=== PATIENT | female | born 1985 | race Caucasian/White ===

== ENCOUNTER 2017-12-10 00:41 | Inpatient (IN) | payer BC ==
[2017-12-10] MEDS ORDERED: Lactated Ringers 1,000 ML ONE (03:08)
--- NOTE | 2017-12-10 03:34 | PCM.PREANE ---
Preanesthetic Assessment - Procedure Proposed Procedure: FATEMEH - Anesthesia/Transfusion/Family Hx Anesthesia History: Prior Anesthesia Without Reaction Family History of Anesthesia Reaction: No Transfusion History: No Prior Transfusion(s) - Review of Systems General: No Symptoms Pulmonary: No Symptoms Cardiovascular: No Symptoms Gastrointestinal: No Symptoms Neurological: No Symptoms Other: Reports: None - Physical Assessment NPO Status Date: 12/10/17 NPO Status Time: 01:00 Respiratory Rate: 18 Vital Signs: Last Vital Signs Temp 36.8 C 12/10/17 01:11 Pulse 81 12/10/17 01:11 Resp 18 12/10/17 01:11 BP 145/91 H 12/10/17 01:11 Pulse Ox Height: 1.57 m Weight: 85.82 kg ASA Class: 2 Mental Status: Alert & Oriented x3 Airway Class: Mallampati = 2 Dentition: Reports: Normal Dentition Thyro-Mental Finger Breadths: 3 Mouth Opening Finger Breadths: 3 ROM/Head Extension: Full Lungs: Clear to Auscultation, Normal Respiratory Effort Cardiovascular: Regular Rate, Regular Rhythm - Lab Values: Laboratory Last Values WBC 12.05 K/mm3 (3.98-10.04) H 12/10/17 02:45 RBC 4.11 M/mm3 (3.98-5.22) 12/10/17 02:45 Hgb 12.1 gm/L (11.2-15.7) 12/10/17 02:45 Hct 36.4 % (34.1-44.9) 12/10/17 02:45 MCV 88.6 fl (79.4-94.8) 12/10/17 02:45 MCH 29.4 pg (25.6-32.2) 12/10/17 02:45 MCHC 33.2 g/dl (32.2-35.5) 12/10/17 02:45 RDW Std Deviation 48.6 fL (36.4-46.3) H 12/10/17 02:45 Plt Count 191 K/mm3 (182-369) 12/10/17 02:45 MPV 11.5 fl (9.4-12.3) 12/10/17 02:45 Neut % (Auto) 71.4 % (34.0-71.1) H 12/10/17 02:45 Lymph % (Auto) 20.7 % (19.3-51.7) 12/10/17 02:45 [place] % (Auto) 6.6 % (4.7-12.5) 12/10/17 02:45 Eos % (Auto) 0.7 (0.7-5.8) 12/10/17 02:45 Baso % (Auto) 0.2 % (0.1-1.2) 12/10/17 02:45 Neut # (Auto) 8.60 K/mm3 (1.56-6.13) H 12/10/17 02:45 Lymph # (Auto) 2.50 K/mm3 (1.18-3.74) 12/10/17 02:45 [place] # (Auto) 0.80 K/mm3 (0.24-0.36) H 12/10/17 02:45 Eos # (Auto) 0.08 K/mm3 (0.04-0.36) 12/10/17 02:45 Baso # (Auto) 0.02 K/mm3 (0.01-0.08) 12/10/17 02:45 Urine Color Yellow (Yellow) 12/10/17 02:25 Urine Appearance Clear (Clear) 12/10/17 02:25 Urine pH 7.0 (5.0-8.0) 12/10/17 02:25 Ur Specific [place] 1.015 (1.005-1.030) 12/10/17 02:25 Urine Protein Negative (Negative) 12/10/17 02:25 Urine Glucose (UA) Negative (Negative) 12/10/17 02:25 Urine Ketones Negative (Negative) 12/10/17 02:25 Urine Occult Blood Negative (Negative) 12/10/17 02:25 Urine Nitrite Negative (Negative) 12/10/17 02:25 Urine Bilirubin Negative (Negative) 12/10/17 02:25 Urine Urobilinogen 0.2 (0.2-1.0) 12/10/17 02:25 Ur Leukocyte Esterase Negative (Negative) 12/10/17 02:25 Urine RBC 0-5 /hpf (0-5) 12/10/17 02:25 Urine WBC 0-5 /hpf (0-5) 12/10/17 02:25 Ur Epithelial Cells 0-5 /hpf (0-5) 12/10/17 02:25 Urine Bacteria Few /hpf (FEW) 12/10/17 02:25 Urine Mucus Not seen /hpf (FEW) 12/10/17 02:25 - Allergies Allergies/Adverse Reactions: Allergies Allergy/AdvReac Type Severity Reaction Status Date / Time paper tape Allergy Rash Uncoded 12/10/17 01:13 - Blood Blood Available: No Product(s) Available: None - Anesthesia Plan Pre-Op Medication Ordered: None - Acknowledgements Anesthesia Type Planned: Epidural Pt an Appropriate Candidate for the Planned Anesthesia: Yes Alternatives and Risks of Anesthesia Discussed w Pt/Guardian: Yes Pt/Guardian Understands and Agrees with Anesthesia Plan: Yes PreAnesthesia Questionnaire - CURRENT (IN HOUSE) MEDS Current Meds: Current Medications Discontinued Medications Lactated Ringer's (Ringers, Lactated) Confirm Administered Dose 1,000 mls @ as directed .ROUTE .STK-MED ONE Stop: 12/10/17 03:09
[2017-12-10] MEDS ORDERED: Ondansetron 4 MG/2 ML SDV IVPUSH PRN (03:38)
[2017-12-10] MEDS ORDERED: ePHEDrine 50 MG/ML SDV IVPUSH PRN (03:38)
[2017-12-10] MEDS ORDERED: diphenhydrAMINE 50 MG/ML SDV IVPUSH PRN (03:38)
[2017-12-10] MEDS ORDERED: fentaNYL 100 MCG/2 ML SDV EPIDUR PRN (03:38)
[2017-12-10] MEDS ORDERED: Sodium Chloride 0.9% 10 ML Syringe FLUSH PRN (03:47)
[2017-12-10] MEDS: Lactated Ringers 1,000 ML IV SCH ×6 (03:50→18:58)
[2017-12-10] MEDS ORDERED: Oxytocin/Lactated Ringers 10 UNIT/1,000 ML BAG IV SCH (04:00)
[2017-12-10] MEDS: Bupivacaine/fentaNYL/NS 100 ML Bag EPIDUR SCH ×2 (04:45→12:04)
[2017-12-10] MEDS ORDERED: Bupivacaine 0.25% 10 ML SDV ONE (06:00)
--- NOTE | 2017-12-10 10:12 | HP ---
DATE OF ADMISSION: 12/10/2017 ADMISSION DIAGNOSIS: 40 and /7th-week intrauterine , active labor. HISTORY OF PRESENT ILLNESS: The patient is a 32-year-old, 1, para 0, white female, who is admitted in active labor with some cervical change. She is jennifer every 3 to 5 minutes, moderately uncomfortable and has changed her cervix. 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 She reports her last menstrual period was definite, that her cycles come on a q.28-day basis. She had menarche at age 11. She was not using any control at the time of conception, and her prior menses date was 02/02/2017. Her course began on 05/08/2017 at 9 and 2/7th weeks gestational age. She was seen on a regular basis throughout the and gained weight from 169.8 pounds up to 187 pounds for approximately a 19-pound weight gain. Her vital signs were stable throughout the course and her fundal height growth was appropriate. The patient has a history of genital HSV and has been on acyclovir prophylaxis at 400 mg 3 times a day since approximately 36 weeks. She plans to breastfeed the baby. She declined genetic evaluation. Her [place] depression screen score on 08/02/2017 was 4/30. She is group B strep negative. She is a centering patient. Rubella titer was equivocal, and the patient is a candidate for an MMR . Laboratory evaluation in shows blood to be A positive with negative antibody screen. Hemoglobin was 13.3 and platelets were 326,000 at first visit. Rubella titer showed equivocal status. RPR is nonreactive. Urine culture at first visit was negative. Hepatitis B surface antigen and HIV assays were both negative. Chlamydia and gonorrhea assays were both negative. Second trimester labs showed a hemoglobin which was low at 10.6 g/dL, at which time the patient was started on iron sulfate in the form of 325 mg twice a day in addition to her vitamins. Second trimester platelets were 259,000, and her 1-hour glucose tolerance test was 117 mg/dL, this was within normal limits. Her group B strep screen is negative. ALLERGIES: None. CURRENT MEDICATIONS: 1. Acyclovir 400 mg tablet 3 times a day since week 36 of . 2. Ferrous sulfate 325 mg b.i.d. 3. vitamins daily. PAST MEDICAL HISTORY: Kidney infection 11 years ago. PAST SURGICAL HISTORY: 1. Rhinoplasty 12 years ago. 2. [place] teeth extraction. 3. Adenoidectomy. FAMILY HISTORY: Mother aged 67 with diabetes mellitus, COPD, hypertension, and obesity; also had 3 spontaneous miscarriages. Father is alive and well. The patient is an only child. Maternal grandmother secondary to natural causes at an early age. Maternal grandfather secondary to old age. Paternal grandmother is alive and well. Paternal grandfather secondary to an OH at early age. No bleeding, clotting, anesthesia, or problems otherwise noted in the family. SOCIAL HISTORY: The patient is . is Alcon Trevino. 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 She lives in [place], [place]. She does not use any significant amounts of alcohol, drugs, or tobacco. REVIEW OF SYSTEMS: SKIN: Negative. CARDIOVASCULAR: No chest pain or exercise intolerance. RESPIRATORY: No shortness of breath or infectious symptoms. GI: Negative. : Changes associated with including increase in fundal height. MUSCULOSKELETAL: Remarkable only for minimal edema on occasional evaluations in . NEUROLOGICAL: Negative. PHYSICAL EXAMINATION: VITAL SIGNS: Include blood pressure on last evaluation in clinic on 12/05/2017 of 137/83. Weight was 187 pounds. heart rate was 132. Pre- weight was 169 pounds. Her height is 5 feet 2 inches, and her pre- body mass index was 30.9. GENERAL: The patient is a well-developed, well-nourished, pleasant female, at stated age, in no acute distress. SKIN: Warm and dry without lesions. HEENT, NECK AND BACK: Within normal limits. LUNGS: Clear with good breath sounds in all lung ross. CARDIOVASCULAR: Shows no murmurs. ABDOMEN: Protuberant with with fundal height on last evaluation in clinic at 38+ cm. BREASTS: Exam not done at this time, having been done earlier in the and found to be normal. It is not repeated at this point. GENITAL: On last evaluation in clinic shows cervix to be 2+ cm, 80% effaced, soft, -3 station, mid position. The patient has dilated somewhat more than that at this time. EXTREMITIES AND NEUROLOGIC: Show trace edema in bilateral lower extremities. ASSESSMENT: 1. Term intrauterine at 40 and 1/7th weeks gestational age with an ANA of 12/09/2017, active labor, cervical change. 2. Rubella equivocal - the patient is a candidate for MMR after delivery. 3. Group B strep screen negative. 4. The patient is okay with epidural. 5. History of genital HSV, presently on acyclovir 400 mg t.i.d. after 36 weeks for prophylaxis. PLAN: 1. Anticipate normal spontaneous vaginal delivery. 2. Epidural p.r.n. for pain. 3. Support decision. 4. MMR after delivery as the patient is rubella equivocal. MMODAL /[id number] MTDD
--- NOTE | 2017-12-10 18:36 | PCM.SN ---
- Free Text/Narrative Note: Dyana is a 32-year-old 1 now para 1001 white female was admitted in active labor on 12/10/2017. She has an ANA of 12/09/2017 by early ultrasound and last menstrual period. She progressed steadily through labor until complete cervical dilation at approximately 1245 hrs. today. She proceeded to push for the next 4 hours. With that push and she brought the baby's head down to a +3 station. Patient became somewhat fatigued at that point and requested intervention. Vacuum extraction, its procedure, risks, benefits, follow-up and alternatives of care including a section was discussed in detail with patient and her . They appear to understand and wish to proceed. The bladder was emptied of approximately 50 mL of urine with a red rubber catheter. Vacuum extraction was performed. The vacuum extractor was placed on the baby's head and with in the course of one push the baby's head delivered. It delivered in a right occiput anterior position. The anterior shoulder delivered without any problems. Posterior shoulder delivered well. Time of delivery of the baby was 1752 hours. The baby weighed 3370 g (7 lbs. 7 oz.) and had a length of 20.5 inches. scores were 9 and 9. Baby's name is Leon Trevino. Baby was placed on mom's abdomen. Pitocin was started IV per protocol to facilitate increase uterine tone andTreduce risk of bleeding. The baby was noted to have a loose nuchal cord 1 and a shoulder cord 1. The umbilical cord had 3 vessels he nose and mouth were bulb suctioned. Cord was allowed to pulsate times approximate 2 minutes. Should be noted that the patient had an epidural in place for labor and analgesia which proved adequate for repair of her perineal lacerations. The placenta delivered in a [place] presentation at 1757 hrs., appeared intact and complete and was discarded per patient desire. Estimated blood loss was 200 mL. Patient had a bilateral sulcus laceration and a left medial labial laceration along with a right medial labial laceration. The sulcus lacerations were repaired independently and the remainder of the repair was done in a second- degree laceration fashion. The external anal sphincter was found to be intact and there was no evidence of fourth degree laceration. 3-0 Monocryl was used for the entire repair. She tolerated this well and again epidural analgesia was used for laceration repair anesthesia. Estimated blood loss was 200 mL. Patient plans to breast-feed. Condition: Good
[2017-12-10] MEDS ORDERED: Acetaminophen 325 MG Tab PO PRN (18:47)
[2017-12-10] MEDS ORDERED: Docusate Sodium 100 MG Cap PO PRN (18:47)
[2017-12-10] MEDS ORDERED: Lanolin 100% Cream 7 GM Tube TOP PRN (18:47)
[2017-12-10] MEDS ORDERED: Benzocaine/Menthol 20%-0.5% Spray 56 GM Canister TOP PRN (18:47)
[2017-12-10] MEDS ORDERED: Measles, Mumps & Rubella Vaccine 0.5 ML SDV SUBCUT ONE (18:47)
[2017-12-10] MEDS ORDERED: Witch Hazel Medicated Pads 100/Jar TOP PRN (18:47)
[2017-12-10] MEDS: Ibuprofen 600 MG Tab PO PRN (20:51)
--- NOTE | 2017-12-11 08:33 | PCM48HPAN ---
Post Anesthesia Note - EVALUATION WITHIN 48HRS OF ANESTHETIC Vital Signs in Normal Range: Yes Patient Participated in Evaluation: Yes Respiratory Function Stable: Yes Airway Patent: Yes Cardiovascular Function Stable: Yes Hydration Status Stable: Yes Pain Control Satisfactory: Yes Nausea and Vomiting Control Satisfactory: Yes Mental Status Recovered: Yes Pulse Rate: 105 Resp Rate: 14 Temperature: 97.9 F Blood Pressure: 120/69
--- NOTE | 2017-12-11 08:43 | PCM.SN ---
- Free Text/Narrative Note: note: Patient is doing well in the period. Minimal lochia, voiding well, ambulated without problems. Nursing without concerns. Patient is afebrile, vital signs are stable Abdomen is flat, soft, uterus is below the umbilicus and is firm and nontender. Legs are nontender. Hb 7.6, Platelets 176,000 Assessment: 1. recovery going well. 2. Anemia due to blood loss at delivery. Plan: Routine care. Patient be discharged home within the next 24- 48 hours. Push oral fluids and iron therapy.
[2017-12-11] MEDS: Ibuprofen 600 MG Tab PO PRN ×3 (08:48→20:18)
--- NOTE | 2017-12-12 06:16 | PCM.DCSUM1 ---
Discharge Summary - Hospital Course Free Text/Narrative:: Dyana is a 32-year-old 1 now para 1001 white female was admitted in active labor on 12/10/2017. She has an ANA of 12/09/2017 by early ultrasound and last menstrual period. She progressed steadily through labor until complete cervical dilation at approximately 1245 hrs. today. She proceeded to push for the next 4 hours. With that push and she brought the baby's head down to a +3 station. Patient became somewhat fatigued at that point and requested intervention. Vacuum extraction, its procedure, risks, benefits, follow-up and alternatives of care including a section was discussed in detail with patient and her . They appear to understand and wish to proceed. The bladder was emptied of approximately 50 mL of urine with a red rubber catheter. Vacuum extraction was performed. The vacuum extractor was placed on the baby's head and with in the course of one push the baby's head delivered. It delivered in a right occiput anterior position. The anterior shoulder delivered without any problems. Posterior shoulder delivered well. Time of delivery of the baby was 1752 hours. The baby weighed 3370 g (7 lbs. 7 oz.) and had a length of 20.5 inches. scores were 9 and 9. Baby's name is Leon Trevino. Baby was placed on mom's abdomen. Pitocin was started IV per protocol to facilitate increase uterine tone andTreduce risk of bleeding. The baby was noted to have a loose nuchal cord 1 and a shoulder cord 1. The umbilical cord had 3 vessels he nose and mouth were bulb suctioned. Cord was allowed to pulsate times approximate 2 minutes. Should be noted that the patient had an epidural in place for labor and analgesia which proved adequate for repair of her perineal lacerations. The placenta delivered in a [place] presentation at 1757 hrs., appeared intact and complete and was discarded per patient desire. Estimated blood loss was 200 mL. Patient had a bilateral sulcus laceration and a left medial labial laceration along with a right medial labial laceration. The sulcus lacerations were repaired independently and the remainder of the repair was done in a second- degree laceration fashion. The external anal sphincter was found to be intact and there was no evidence of fourth degree laceration. 3-0 Monocryl was used for the entire repair. She tolerated this well and again epidural analgesia was used for laceration repair anesthesia. Estimated blood loss was 200 mL. Patient plans to breast-feed. the patient has done well. Her hemoglobin did drop to 7.6 g/dL but patient is tolerating this well. She is ambulating well, does not feel lightheaded or dizzy. She has minimal lochia. Nursing is going well. Patient does not feel that blood transfusion is warranted at this time. We discussed with her as a potential therapy she declines at this time. Patient is desiring to be discharged home. - Discharge Data Discharge Date: 12/12/17 Discharge Disposition: Home, Self-Care 01 Condition: Good - Patient Instructions Diet: Regular Diet as Tolerated (Nursing diet with increase calories and calcium as recommended) Activity: As Tolerated (No intercourse or tampons until bleeding resolves,) Driving: Do Not Drive Showering/Bathing: May Shower (May take a bath) Notify Provider of: Fever, Increased Pain, Swelling and Redness, Nausea and/or Vomiting - Discharge Plan Prescriptions/Med Rec: Ferrous Sulfate 325 mg PO BID #100 tablet Home Medications: Home Meds Acetaminophen [Tylenol] 650 mg PO Q4H PRN tablet 12/12/17 [Rx] Ferrous Sulfate 325 mg PO BID #100 tablet 12/12/17 [Rx] Ibuprofen [Motrin] 600 mg PO Q4H PRN tablet 12/12/17 [Rx] Referrals: Moses Guerrero MD [Primary Care Provider] - (Return to clinicDr. Guerrero2 weeks.) - Discharge Summary/Plan Comment DC Time >30 min.: No Discharge Summary/Plan Comment: Discharge instructions: 1. Discharge home 2. Diet, activity and follow-up discussed with patient. Recommend nursing diet with increased calories and calcium. 3. Precautions given concern increased pain, bleeding, temperature, signs/ symptoms of DVT/PE. 4. Medications per home medication was printed, discussed with and given to the patient. 5. Return to clinic-Dr. Guerrero[facility] in 2 weeks. Diagnosis: Term -delivered Condition: Good - Patient Data Vitals - Most Recent: Last Vital Signs Temp 36.7 C 12/12/17 02:10 Pulse 90 12/12/17 02:10 Resp 15 12/12/17 02:10 BP 136/93 H 12/12/17 02:10 Pulse Ox 99 12/12/17 02:10 Weight - Most Recent: 85.82 kg I&O - Last 24 hours: Intake & Output 12/11/17 12/11/17 12/12/17 14:59 22:59 06:59 Intake Total 120 320 Balance 120 320 Lab Results - Last 24 hrs: Laboratory Results - last 24 hr 12/11/17 Range/Units 05:40 WBC 19.72 H (3.98-10.04) K/mm3 RBC 2.58 L (3.98-5.22) M/mm3 Hgb 7.6 L (11.2-15.7) gm/L Hct 23.4 L (34.1-44.9) % MCV 90.7 (79.4-94.8) fl MCH 29.5 (25.6-32.2) pg MCHC 32.5 (32.2-35.5) g/dl RDW Std Deviation 49.7 H (36.4-46.3) fL Plt Count 178 L (182-369) K/mm3 MPV 11.8 (9.4-12.3) fl Med Orders - Current: Current Medications Acetaminophen (Tylenol) 650 mg PO Q4H PRN PRN Reason: mild pain or fever Benzocaine/Menthol (Dermoplast Pain Relief [place]) 0 gm TOP ASDIRECTED PRN PRN Reason: Perineal Comfort Measure Last Admin: 12/10/17 20:50 Dose: 1 canister Docusate Sodium (Colace) 100 mg PO BID PRN PRN Reason: Constipation Last Admin: 12/11/17 14:49 Dose: 100 mg Emollient Ointment (Lansinoh Hpa) 0 gm TOP ASDIRECTED PRN PRN Reason: Sore Nipples Last Admin: 12/10/17 20:50 Dose: 1 tube Ibuprofen (Motrin) 600 mg PO Q4H PRN PRN Reason: Mild pain or fever Last Admin: 12/11/17 20:18 Dose: 600 mg Witch Kaylee (Tucks) 1 pad TOP ASDIRECTED PRN PRN Reason: Hemorrhoid pain Last Admin: 12/10/17 20:50 Dose: 1 jar Discontinued Medications Bupivacaine HCl (Sensorcaine-Mpf 0.25%) 10 ml .ROUTE .STK-MED ONE Stop: 12/10/17 06:01 Diphenhydramine HCl (Benadryl) 25 mg IVPUSH Q6H PRN PRN Reason: Pruritis Ephedrine Sulfate (Ephedrine Sulfate) 5 mg IVPUSH ASDIRECTED PRN PRN Reason: Hypotension Fentanyl (Sublimaze) 100 mcg EPIDUR Q3H PRN PRN Reason: Pain Last Admin: 12/10/17 04:45 Dose: 100 mcg Fentanyl/Bupivacaine HCl (Fentanyl/Bupivacaine/Ns 2 Mcg-0.125% 100 Ml) 100 ml EPIDUR ASDIRECTED MARRY Last Admin: 12/10/17 12:04 Dose: 100 ml Lactated Ringer's (Ringers, Lactated) Confirm Administered Dose 1,000 mls @ as directed .ROUTE .STK-MED ONE Stop: 12/10/17 03:09 Last Admin: 12/10/17 03:53 Dose: Not Given Lactated Ringer's (Ringers, Lactated) 1,000 mls @ 100 mls/hr IV ASDIRECTED MARRY Last Admin: 12/10/17 18:58 Dose: 100 mls/hr Oxytocin/Lactated Ringer's (Pitocin In Lr 10 Units/1,000 Ml) 10 unit in 1,000 mls @ 500 mls/hr IV .CONTINUOUS MARRY Last Admin: 12/10/17 17:52 Dose: 500 mls/hr Measles/Mumps/Rubella Vaccine Live (M-M-R Ii Vaccine) 0.5 ml SUBCUT .ONCE ONE Stop: 12/10/17 18:48 Ondansetron HCl (Zofran) 4 mg IVPUSH ONETIME PRN PRN Reason: Nausea/Vomiting Sodium Chloride (Saline Flush) 10 ml FLUSH ASDIRECTED PRN PRN Reason: Keep Vein Open
[2017-12-12] MEDS: Ibuprofen 600 MG Tab PO PRN (08:07)
== END 2017-12-12 11:15 | disposition home or self-care (01) | DRG 560 ==
LOC: JD.OBCHECK 00:41 → JD.OB 00:46 → JD.OBCHECK 02:36 → JD.OB 02:36 → OBSVTOIN 17:52 → JD.OB 17:52
PROVIDERS: ADMIT Obstetrics & Gynecology; ATTEND Obstetrics & Gynecology
PROC: 10D07Z6 Extraction of Products of Conception, Vacuum, Via Natural or Artificial Opening (ICD-10-PCS; principal; 2017-12-10)
PROC: 0HQ9XZZ Repair Perineum Skin, External Approach (ICD-10-PCS; 2017-12-10)
PROC: 0KQM0ZZ Repair Perineum Muscle, Open Approach (ICD-10-PCS; 2017-12-10)
PROC: 3E0S3GC Introduction of Other Therapeutic Substance into Epidural Space, Percutaneous Approach (ICD-10-PCS; 2017-12-10)
DX: O75.81 Maternal exhaustion complicating labor and delivery (principal); O98.32 Other infections with a predominantly sexual mode of transmission complicating childbirth; A60.00 Herpesviral infection of urogenital system, unspecified; Z3A.40 40 weeks gestation of pregnancy; Z37.0 Single live birth; O90.81 Anemia of the puerperium; D64.89 Other specified anemias; O70.0 First degree perineal laceration during delivery; O70.1 Second degree perineal laceration during delivery; Z79.2 Long term (current) use of antibiotics
CPT/HCPCS: 01967; 36415; 51701; 51702; 59025; 59300; 59409; 81001; 82565; 83615; 84450; 84460; 84520; 84550; 85025; 85027; 85362; 85384; 90707; A9270-GY; J2590; J3010; J7120